=== PATIENT | male | born 1975 | race Caucasian/White ===

== ENCOUNTER 2022-02-10 20:59 | Outpatient (REF) | payer BC, SELFPAY ==
[2022-02-12 12:01] LABS: COVID-19 RT-PCR UVMMC Result Negative (Negative)
== END 2022-02-10 21:00 | disposition home or self-care (01) ==
LOC: NCHCN 20:59
PROVIDERS: Visit Provider Physician Assistant
DX: Z20.822 Contact with and (suspected) exposure to COVID-19 (principal)
CPT/HCPCS: U0003

== ENCOUNTER 2022-12-09 14:21 | Outpatient (CLI) | payer OTHER, SELFPAY ==
--- NOTE | 2022-12-09 14:00 | DI.RAD_ITS ---
Exam(s) XR SHOULDER RT COMPLETE 2+V EXAM: XR SHOULDER RT COMPLETE 2+V CLINICAL HISTORY: RIGHT SHOULDER PAIN. TECHNIQUE: 2D digital imaging was performed. COMPARISON: No exams were available for comparison FINDINGS: Two views: No evidence of fracture or dislocation or abnormal soft tissue calcifications. The subacromial space is not diminished. There is no glenohumeral joint space narrowing. Bone density normal. No osseou s lesions. Mild degenerative changes in the AC joint. Deformity in the mid aspect of the clavicle m ay be related to a healed fracture site versus is projection. IMPRESSION: As above. DATA REPOSITORY: RADIATION DOSE DELIVERED:
== END 2022-12-09 14:22 | disposition home or self-care (01) ==
PROVIDERS: PCP Nurse Practitioner; Referring Provider Nurse Practitioner; Visit Provider Student in an Organized Health Care Education/Training Program
DX: M25.511 Pain in right shoulder (principal); R93.89 Abnormal findings on diagnostic imaging of other specified body structures
CPT/HCPCS: 73030

== ENCOUNTER 2022-12-15 09:02 | Outpatient (CLI) | payer BC, SELFPAY ==
[2022-12-15 05:02] LABS: HCT 46.8 % (40.0-50.0); HGB 16.3 g/dL (13.5-17.5); MCHC 34.8 % (32.0-36.0); MCV 89 fL (80-95); MPV 9.4 fL (8.0-11.0); Platelet Count 174 10^3/uL (130-400); RBC 5.25 10^6/uL (4.36-5.78); RDW-SD 39.2 fL; WBC 5.74 10^3/uL (4.4-10.8)
[2022-12-15 06:07] LABS: ALT 265 U/L (16-63); AST 105 U/L (15-37); Albumin 4.2 g/dL (3.4-5.0); Alkaline Phosphatase 79 U/L (46-116); Anion Gap 8.6 mmol/L (3-11); BUN 14 mg/dL (7-18); Bilirubin, Total 0.7 mg/dL (0.2-1.0); CO2 27.4 mmol/L (21.0-32.0); Calcium 9.2 mg/dL (8.5-10.1); Calculated LDL 134 mg/dL (<100); Chloride 106 mmol/L (98-107); Cholesterol 203 mg/dL (<200); Glucose 109 mg/dL (74-106); HDL Cholesterol 45 mg/dL (40-60); Sodium 142 mmol/L (136-145); Triglyceride 122 mg/dL (<150)
[2022-12-15 16:37] LABS: Lab Add On Test DONE
[2022-12-15 17:04] LABS: Hemoglobin A1C 5.1 % (<5.7)
[2022-12-16 11:23] LABS: HIV-1/2 Ag & Ab Screen Negative (Negative)
[2022-12-16 15:43] LABS: Hepatitis C Ab w Rflx HCV PCR Negative (Negative)
== END 2022-12-15 09:03 | disposition home or self-care (01) ==
LOC: LBO 09:02
PROVIDERS: PCP Nurse Practitioner; Visit Provider Nurse Practitioner
DX: R73.09 Other abnormal glucose (principal); F41.1 Generalized anxiety disorder; G47.33 Obstructive sleep apnea (adult) (pediatric); Z13.220 Encounter for screening for lipoid disorders; Z11.59 Encounter for screening for other viral diseases; Z11.4 Encounter for screening for human immunodeficiency virus [HIV]; K21.9 Gastro-esophageal reflux disease without esophagitis
CPT/HCPCS: 80053; 80061; 85027; 86803; 87389; 83036

== ENCOUNTER 2023-01-15 01:17 | Outpatient (CLI) | payer OTHER, SELFPAY ==
--- NOTE | 2023-01-15 07:38 | DI.MRI_ITS ---
Exam(s) MR UPPER JOINT RT WO EXAM: MR UPPER JOINT RT WO CLINICAL HISTORY: R SHOULDER PAIN, INJURY,SLAP TEAR,S43.431A. TECHNIQUE: Multiplanar multisequence MRI was performed. COMPARISON: Plain films 09 December 2022 FINDINGS: BONES: No fracture . Some marrow edema seen adjacent to AC joint in distal clavicle and acromion. P osttraumatic versus inflammatory. No joint widening. JOINTS:The acromioclavicular joint shows mild spurring. The glenohumeral joint shows a small amount of fluid. TENDONS: Supraspinatus: Mild edema. No focal tear. Infraspinatus: Unremarkable. Subscapularis: Unremarkable. [place]: Unremarkable. Biceps and [place]: Thickening and intermediate signal of the proximal long head of the biceps tendon. No focal tear. Some fluid is noted in the biceps tendon sheath. MUSCLES: Unremarkable. GLENOID LABRUM: Unremarkable on this noncontrast examination. SOFT TISSUES: Unremarkable. OTHER: Subacromial and subdeltoid bursae show no fluid.. IMPRESSION: Tendinosis of the proximal biceps tendon. Question mild tendinosis supraspinatus. No labral tear vi sible. DATA REPOSITORY:
== END 2023-01-15 01:37 ==
PROVIDERS: PCP Nurse Practitioner; Visit Provider Student in an Organized Health Care Education/Training Program
DX: M25.511 Pain in right shoulder (principal); S43.431A Superior glenoid labrum lesion of right shoulder, initial encounter; M75.81 Other shoulder lesions, right shoulder
CPT/HCPCS: 73221

== ENCOUNTER 2023-01-15 13:37 | Outpatient (CLI) | payer BC, SELFPAY ==
[2023-01-15 15:59] LABS: ALT 103 U/L (16-63); AST 45 U/L (15-37); Albumin 4.3 g/dL (3.4-5.0); Alkaline Phosphatase 72 U/L (46-116); Bilirubin, Direct 0.2 mg/dL (0.0-0.2); Bilirubin, Total 0.8 mg/dL (0.2-1.0); Total Protein 7.5 g/dL (6.4-8.2)
== END 2023-01-15 13:38 | disposition home or self-care (01) ==
LOC: LBO 13:37
PROVIDERS: PCP Nurse Practitioner; Visit Provider Nurse Practitioner
DX: R79.89 Other specified abnormal findings of blood chemistry (principal)
CPT/HCPCS: 36415; 80076

== ENCOUNTER 2023-02-12 11:15 | Day surgery (SDC) | payer OTHER, SELFPAY ==
[2023-02-11] MEDS: Lactated Ringers 1,000 ML 30 ML IV (12:30)
[2023-02-12] VITALS (10 sets, daily range): BP systolic 98–138; BP diastolic 55–96; PULSE 63–76; RESP 12–19; TEMP 36.4–36.7; O2SAT 92–96; BMI 32.0
--- NOTE | 2023-02-12 12:16 | ANES.PREOP_ITS ---
General Info Date of Service Date Performed: 02/12/23 Height: 5 ft 9 in Weight: 98.43 kg Body Mass Index (BMI): 32.0 Surgical Procedure: Operation Date: 02/12/23 13:10 Proposed Procedure Side Surgeon p Shoulder Rotator Cuff Arthroscopic w/Extensive Debridement, Biceps Tenodesis, Subacromial Decompression Right Bj Mario MD Meds Allergies and Home Medications Allergies Allergy/AdvReac Type Severity Reaction Status Date / Time Penicillins Allergy Intermediate Skin Rash Verified 02/11/23 10:14 Sulfa (Sulfonamide Allergy Intermediate Hives Verified 02/11/23 10:14 Antibiotics) Home Medication Medication Instructions Recorded CPAP inhalation 07/25/22 fexofenadine 180 mg tablet 180 mg PO DAILY 07/28/22 (Allergy Relief (fexofenadine)) lorazepam 0.5 mg tablet 0.5 mg PO DAILY PRN anxiety #30 07/29/22 tabs omeprazole 20 mg capsule,delayed 20 mg PO DAILY #90 caps 07/29/22 release sertraline 100 mg tablet 100 mg PO DAILY #90 tabs 07/29/22 aspirin 81 mg tablet,delayed 81 mg PO DAILY prevent blood clot 02/12/23 release 7 days #7 tabs naproxen 250 mg tablet 250 - 500 mg PO BID PRN #40 tabs 02/12/23 oxycodone 5 mg tablet 5 - 10 mg PO Q4H PRN moderate to 02/12/23 severe pain #18 tabs Current Visit Medications: Current Medications Generic Name Dose Route Start Last Admin Trade Name Freq PRN Reason Stop Dose Admin Ringer's Solution 1,000 mls @ 30 mls/hr 02/12/23 06:00 IV 02/12/23 16:00 INFUSION HUSSEIN Cefazolin Sodium/Dextrose 2 gm in 50 mls @ 100 mls/hr 02/12/23 06:00 Ancef Duplex IVPB 02/12/23 23:59 PREOP HUSSEIN IV Miscellaneous Supplies 1 each 02/12/23 06:00 Iv Access IV 02/12/23 23:59 DIRECTED HUSSEIN Sodium Chloride 0 ml 02/12/23 06:00 Normal Saline Flush 10 Ml Syr IV 02/12/23 23:59 PRN PRN Sodium Chloride 0 ml 02/12/23 06:00 Normal Saline 10 Ml Vial IJ 02/12/23 23:59 DIRECTED PRN Sterile Water 0 ml 02/12/23 06:00 Water,Injection,Sterile 10 Ml Vial IJ 02/12/23 23:59 DIRECTED PRN PFSH Active Problems Active Problems: Problem Status Onset Code Chronic heartburn R12 Generalized anxiety disorder F41.1 Obstructive sleep apnea (adult) (pediatric) G47.33 Erectile dysfunction due to arterial insufficiency N52.01 Smoking greater than 20 pack years F17.210 Superior labrum bbsdzpgj-oa-trnljlptk (SLAP) tear of right shoulder S43.431A Traumatic tear of right rotator cuff S46.011A Tendonitis of long head of biceps brachii of right shoulder M75.21 Medical History Medical History (Updated 02/12/23 @ 12:32 by Bj Mario MD) Compressed spine fracture (Unknown) Pneumonia (1993) Superior labrum dunfvwcw-te-qrfbfcvae (SLAP) tear of right shoulder Tuberculosis (1992) Surgical History Surgical History History of appendectomy (1995) Hx of colonoscopy with polypectomy x6, last 2018 Tobacco Smoking/Tobacco Use Status: Former Tobacco Use Second hand exposure: No Alcohol Alcohol Intake: current Alcohol intake frequency: a few times a week Alcohol type: hard liquor Substance Use Substance use: Never Substance use type: does not use Vital Signs and Lab Results Lab Results Blood Type / Crossmatch: No Data to Display Complete Blood Count: No Data to Display Complete Metabolic Panel: Albumin 4.3 g/dL (3.4-5.0) 01/15/23 15:19 Liver Function Panel: Alanine Aminotransferase (ALT/SGPT) 103 U/L (16-63) H 01/15/23 15:19 Aspartate Amino Transf (AST/SGOT) 45 U/L (15-37) H 01/15/23 15: 19 Coagulation Panel: No Data to Display Cardiac Panel: No Data to Display Arterial Blood Gas: No Data to Display Venous Blood Gas: No Data to Display Pancreas Panel: No Data to Display Thyroid Panel: No Data to Display Infectious Disease: No Data to Display Blood Cultures: No Data to Display Toxicology Panel: No Data to Display Anesthesia Assessment and Plan Anesthesia History Personal History: No History of Anesthesia Complications Family History: No Family History of Anesthesia Complications Exercise Tolerance Exercise Tolerance: Metabolic Equivalents>4 Pertinent Negatives Pertinent Negatives: No Major Cardiovascular Symptoms or Complaints and No Major Pulmonary Symptoms or Complaints Cardiac & Pulmonary Exam Cardiac Exam: Normal S1/S2 Heart Sounds Pulmonary Exam: Clear Bilateral Breath Sounds Implantable Cardiac Device Does patient have a Pacemaker or an ICD?: No Airway Exam Known Difficult Airway: No Mallampati Class: 2 Mouth Opening: Normal (> 3cm) Thyromental Distance: Greater than 3 cm Neck Range of Motion: Full ROM Neck Circumference: Thick Teeth Condition: Normal Dentition ASA Classification ASA Score: ASA 2 Emergency Case?: No NPO Status NPO Status: NPO Clears >2 hours, Solids >8 hours Anesthesia Plan Resuscitation Status: Full Code Anesthesia Technique: General Anesthesia Airway Planned: Endotracheal Tube Pain Management: Surgeon and patient request nerve block Monitors Used: Standard Monitors
--- NOTE | 2023-02-12 12:31 | W.PM.OP ---
Date of service: 02/12/23 Time of Service: 13:00 Operative Note Operative Note DATE OF PROCEDURE: 02/12/23 PRE-OP DIAGNOSIS: Right: 1. Rotator cuff tear 2. SLAP tear with LHB tendinopathy 3. Bursitis POST-OP DIAGNOSIS: same PROCEDURE: Right: 1. Rotator cuff repair, CPT# 30708. This involved repair of the subscapularis using anchor and sutures to reattach the rotator cuff back to the footprint of the lesser tuberosity. 2. Arthroscopic biceps tenodesis, CPT# 38367. This involved arthroscopically suturing and reattaching the long head of the biceps tendon to the proximal humerus at the superior margin of the bicipital groove with a screw at the correct tension. 3. Extensive debridement, CPT# 09012. This involved using arthroscopic hand instruments, power instruments, and radiofrequency instruments to release the long head of the biceps tendon and debride areas of partial articular rotator cuff tearing, labral tearing, synovitis, and chondromalacia about the lesser tuberosity working within the glenohumeral joint anteriorly, superiorly and posteriorly. 4. Subacromial decompression with partial acromioplasty, CPT# 01515. This involved using arthroscopic power instruments and a radiofrequency wand to complete a bursectomy and smooth the undersurface of the acromion. The judicial administrative assistant was medically required in order to help assist in techniques above, which require positioning the arm, holding the arthroscope, and manipulating multiple instruments and sutures at the same time. This cannot be done without the help of an experienced judicial administrative assistant. SURGEON: Bj Mario BLACKING MACHINE OPERATOR: Kassandra Plummer ANESTHESIA TYPE: Local By Surgeon, General LMA/ETT and Primary Nerve Block Refer to Anesthesia Record ESTIMATED BLOOD LOSS: 10 PATHOLOGY: none sent COMPLICATIONS: None Patient was transported to: PACU Patient's condition: stable Implants: Arthrex: 4.75mm SwiveLocks x 1 Indications: The patient was diagnosed with the above conditions and appropriately indicated for surgical intervention. Please see complete medical record for details. Findings: Exam under anesthesia: Full range of motion, no instability Glenohumeral joint: Moderately sized upper lateral subscapularis tear with tissue void between the capsular and articular layers. Adjacent partial intra-articular biceps tendon tearing. Mild lesser tuberosity chondromalacia. Moderate articular sided supraspinatus thin tearing. Small anterior labral tear. Injected intra-articular biceps segment and biceps anchor superior labrum. Mild infraspinatus articular sided fraying and tearing. Subacromial space: Moderate bursitis. Moderate sharp undersurface acromion somewhat medially on the bursal rotator cuff. Intact bursal rotator cuff. Procedure Description: In the operating room, general anesthesia was induced. Bilateral shoulders were examined. The patient was positioned in the beachchair position. All bony prominences were well-padded. Preoperative antibiotics were administered. The shoulder was prepped and draped in the usual sterile fashion. The correct patient, procedure, and side of the procedure were all verified prior to incision. Starting through the posterior portal a standard complete diagnostic arthroscopy was performed of the glenohumeral joint including inspection of the long head of the biceps, anterior and superior labrum, subscapularis tendon, supraspinatus and infraspinatus tendons, and axillary recess. The glenoid and humeral head cartilage as well as the posterior labrum were inspected from an anterior viewing portal. Significant findings and interventions noted above. A rigid cannula was inserted anteriorly. The articular supraspinatus and infraspinatus tearing was carefully debrided removing the free flaps but preserving as much as a superior capsule and intact tendon as possible. The subscapularis tear was probed with a somewhat unusual avoid between the layers and the defect at the superior aspect of the lesser tuberosity. The biceps tendon was then secured using the loop and tack method with a suture tape FiberLink cinched around and through the tendon. The tendon was cut flush and amputated from the superior labrum. It was withdrawn with direct arm pressure and rested nicely at an ideal location at the superior aspect of the bicipital groove. The subscapularis tendon was then lightly debrided and the lesser tuberosity prepared with hand and power instruments to optimize bone tendon healing. A FiberTape was then placed using the BirdBeak around the tear void. In the punch was used to localize suture anchor placement. The biceps tenodesis repair suture was shuttled through the suture anchor eyelet from lateral to medial in the subscapularis repair suture shuttled the other way from medial to lateral. The 4.75 mm knotless SwiveLock anchor was then appropriately deployed with excellent reduction and tissue fixation of the subscapularis as well the biceps tenodesis. The subscapularis repair was probed and examined through external rotation found to be stable. The biceps tendon stump was then secured additionally given young age and high activity level with the available extra knotless mechanism stitch shuttled around the tendon and then secured and tension back through the anchor mechanism. The biceps repair was was also stable through testing and direct arm pressure. The articular rotator cuff repair was again inspected and there was no high-grade thickness tearing or more than fairly minimal involvement of the greater tuberosity rotator cuff footprint. Starting through the posterior portal, the arthroscope was directed into the subacromial space. A lateral 50 yard line lateral portal was created. A combination of power instruments and a radiofrequency ablator were used to debride bursitis anteriorly, posteriorly, and laterally as well as expose and smooth bone spurring on the undersurface of the acromion. The coracoacromial ligament was partially released. The bursectomy was completed viewing laterally and working from posteriorly and the rotator cuff was thoroughly inspected with findings noted above. The shoulder was drained of arthroscopic fluid. All portal sites were copiously irrigated. These incisions were closed using 3-0 Monocryl in a buried fashion and then covered with Mastisol, Steri-Strips, Xeroform, dry gauze, and ABDs. The dressings were covered and secured with Medipore tape. The operative extremity was placed into a sling for immobilization. The patient awoke from anesthesia without complication and was transferred to the recovery room in a stable condition.
--- NOTE | 2023-02-12 12:31 | W.PM.DSUDISC ---
Date of service: 02/12/23 Time of Service: 15:00 Discharge Plan Disposition Patient Disposition: Home Discharge Details Attending Provider: Bj Mario Primary Care Provider: Eliza Cruz Home Meds and New Rx's Prescriptions: New naproxen 250 mg tablet 250 - 500 mg PO BID PRNQty: 40 0RF Rx Instructions: take with a meal aspirin 81 mg tablet,delayed release (DR/EC) 81 mg PO DAILY 7 Days Qty: 7 0RF oxycodone 5 mg tablet 5 - 10 mg PO Q4H MDD 30 mg PRN (Reason: moderate to severe pain) Qty: 18 0RF Continued CPAP inhalation fexofenadine [Allergy Relief (fexofenadine)] 180 mg tablet 180 mg PO DAILY lorazepam 0.5 mg tablet 0.5 mg PO DAILY PRN (Reason: anxiety) Qty: 30 0RF omeprazole 20 mg capsule,delayed release(DR/EC) 20 mg PO DAILY Qty: 90 3RF sertraline 100 mg tablet 100 mg PO DAILY Qty: 90 3RF Discharge Instructions Additional Instructions: Surgery: Right shoulder arthroscopy with rotator cuff repair (subscapularis), biceps tenodesis, extensive debridement, and subacromial decompression. Activity: For 6 weeks, you should keep your arm at your side in a neutral position at all times except for physical therapy. Do not try to lift or raise your arm using your own muscles. You should use the sling whenever you are out of the house. You may have to adjust the abduction pillow or remove it for comfort. At home it is best to remove the sling and rest the arm on a pillow at your side or support the operative side with your other hand. You may allow the arm to dangle at your side. A physical therapy prescription will be sent electronically to begin in about 3 weeks. ACCELERATED protocol. Prescriptions: Aspirin 81 mg take 1 daily to prevent a blood clot for 7 days Naproxen 250 mg take 1-2 every 12 hours with a meal as needed for moderate pain Oxycodone 5 mg take 1-2 every 4-6 hours as needed for severe pain You may use bmym-nqw-nmralpg Tylenol (acetaminophen) as needed for mild pain. These pain medications may be taken all at once or in different combinations as needed. Also, recommend Colace (docusate) as a stool softener as surgery and pain medicine cause constipation. You may try wyvj-xnc-cijbujs diphenhydramine (Benadryl) 25-50 mg nightly as a sleep aid Dressings: Remove shoulder bandage after 3 days. Leave the sticky Steri-Strips in place until they fall off or remove them after you shower. Cover the incisions with Band-Aids or leave them open to air. You may shower after 5 days. Follow-up: 10-[address] Mario You may take off the leg compression stockings this evening at home. You may also leave them on a few days longer if you have a history of leg swelling or edema. Let us know right away if you develop any redness, drainage, fevers, chest pain, or trouble breathing. Do not drink alcohol or drive for at least 24 hours after anesthesia. Please call the office during business hours with any questions or concerns. Discharge Orders Discharge Orders: Discharge Order (Routine); Ordered 02/12/23 Ordered By: Bj Mario DS: Diagnosis Discharge Diagnosis (1) Traumatic tear of right rotator cuff: Status: Acute
[2023-02-12] MEDS: ceFAZolin 2 GM/50 ML BAG IVPB (13:45)
--- NOTE | 2023-02-12 14:24 | W.ANESNERVE ---
Nerve Block Single Injection Procedure Date and Time Date Performed: 02/12/23 Procedure Start: 12:51 Location Where Procedure Performed Procedure Location: Day Surgery Unit Reason Performed: Postoperative Analgesia Requesting Provider: Bj Mario Timeout Performed Timeout Performed: Yes Monitoring Used ECG, Blood Pressure, SpO2 and See EMR for corresponding vital signs Sterility Sterility: Hand Hygiene, Surgical Cap, Surgical Mask, Sterile Gloves and Chlorhexidine Sedation Given During Procedure Sedation Given (Indicate Dose Given): Versed IV Dose:: 2mg Patient Mental Status Patient Mental Status: Sedate with meaningful communication Nerve Block 1st Nerve Block: Laterality: Right Block Type: Interscalene Ultrasound Image Saved?: Yes Needle / Catheter Used: 100mm SonoPlex II Local Anesthetic Bolus (Indicate Dose Given): Lidocaine used for local infiltration of skin, Injected in 3-5ml increments after negative blood aspiration, Bupivacaine 0.5% Dose:: 15mL and Exparel Dose:: 10mL Additives (Indicate Dose Given): None Ultrasound: Sterile probe cover and gel used Nerve Stimulator: Supplement to Ultrasound use and No twitch or parasthesia noted < 0.5 mA Paresthesia: Right (Patient has difficult time discerning between pressure and electrical sensation, no response on nerve stimulator, but needle retracted at patient's response to discomfort) Paresthesia Duration: Transient Procedure Tolerated: No Complications Procedure Outcome: Successful Procedure Comment: Ollie Sandhu CRNA assist with block. Slightly distal to interscalene groove secondary to patient positioning. Patient tolerated procedure well, present during procedure at patient request. Performed By: Luci Meraz
[2023-02-12] MEDS: Bupivacaine 0.25% Pres-Free W/EPI 30 ML VIAL (14:43)
[2023-02-12] MEDS: EPINEPHrine 30 MG/30 ML VIAL (14:43)
--- NOTE | 2023-02-12 16:00 | DI.RAD_ITS ---
Exam(s) XR PORTABLE CHEST AP EXAM: XR PORTABLE CHEST AP CLINICAL HISTORY: Tracheal width exam. TECHNIQUE: 2D digital imaging was performed. COMPARISON: No exams were available for comparison FINDINGS: Exam is extremely limited by poor pulmonary inflation and respiratory motion. LUNGS: Expiratory. Question of bilateral pleural effusions and basilar infiltrates versus atelectasi s. HEART: Mostly obscured. AORTA: Normal diameter. BONES: Unremarkable for age. Soft tissues: Unremarkable. IMPRESSION: Extremely limited exam. Question of bilateral pleural effusions and or infiltrates. DATA REPOSITORY: RADIATION DOSE DELIVERED:
--- NOTE | 2023-02-12 16:35 | W.ANESPOSTOP ---
Postoperative Evaluation Date, Time and Location Date Performed: 02/12/23 Time Performed: 16:35 Patient Location: PACU Vital Signs Most Recent Imported Vital Signs: Most Recent Vital Signs Temp Pulse Resp BP Pulse Ox 36.7 C 66 15 98/71 L 95 02/12/23 16:18 02/12/23 16:18 02/12/23 16:18 02/12/23 16:18 02/12/23 16:18 Pain Score Most Recent Pain Score: Most Recent Pain Score Pain Level 5 02/12/23 16:18 Assessment Mental Status: Awake (Alert & Oriented to Patient Baseline) Airway and Respiratory Function: Patent airway with normal (patient baseline) respiratory exam Cardiovascular Function: Hemodynamically Stable Hydration Status: Adequately Hydrated Nausea & Vomiting: No Nausea or Vomiting Pain: Pain is tolerable per patient (Will receive PO oxycodone in [facility]. He is motivated to go home. ) Peripheral Nerve Block: Regional nerve block not resolved at time of post operative discharge (Moving fingers, denies finger/hand numbness/tingling. He point to one spot in his anterior superior shoulder that is painful, otherwise no other discomfort.)
[2023-02-12] MEDS: oxyCODONE 5 MG TAB PO ×2 (16:42→17:28)
== END 2023-02-12 17:48 | disposition home or self-care (01) ==
PROVIDERS: PCP Nurse Practitioner; Visit Provider Student in an Organized Health Care Education/Training Program
PROC: (CPT 29827; principal; 2023-02-12 13:00)
DX: S46.011A Strain of muscle(s) and tendon(s) of the rotator cuff of right shoulder, initial encounter (principal); S43.431A Superior glenoid labrum lesion of right shoulder, initial encounter; M75.21 Bicipital tendinitis, right shoulder; M75.51 Bursitis of right shoulder; X58.XXXA Exposure to other specified factors, initial encounter; M94.211 Chondromalacia, right shoulder; M65.811 Other synovitis and tenosynovitis, right shoulder
CPT/HCPCS: 29827; 29828; 29826; 29823; 76942; 71045; J0690; J1100; J1885; J2250; J2370; J2405; J2704

== ENCOUNTER 2024-01-22 13:42 | Outpatient (CLI) | payer BC, SELFPAY ==
[2024-01-22 11:34] LABS: Absolute Basophil Count 0.02 10^3/uL (0.0-0.2); Absolute Eosinophil Count 0.04 10^3/uL (0.0-0.7); Absolute Lymphocyte Count 1.97 10^3/uL (1.2-3.4); Absolute Monocyte Count 0.52 10^3/uL (0.1-0.8); Basophils % 0.3; Eosinophils % 0.7; HCT 49.1 % (40.0-50.0); HGB 17.5 g/dL (13.5-17.5); Lymphocytes % 33.7; MCH 31.5 pg (27.0-33.0); MCHC 35.6 % (32.0-36.0); MCV 89 fL (80-95); MPV 9.2 fL (8.0-11.0); Monocytes % 8.9; Neutrophils % 56.4; Platelet Count 205 10^3/uL (130-400); RBC 5.55 10^6/uL (4.36-5.78); RDW 13.2 % (11.8-14.1); RDW-SD 42.7 fL; WBC 5.85 10^3/uL (4.4-10.8)
[2024-01-22 12:14] LABS: ALT 153 U/L (16-63); AST 84 U/L (15-37); Albumin 4.3 g/dL (3.4-5.0); Alkaline Phosphatase 72 U/L (46-116); Anion Gap 5.5 mmol/L (3-11); BUN 10 mg/dL (7-18); Bilirubin, Direct 0.3 mg/dL (0.0-0.2); Bilirubin, Total 1.2 mg/dL (0.2-1.0); CO2 31.5 mmol/L (21.0-32.0); CREATININE 1.1 mg/dL (0.70-1.30); Chloride 105 mmol/L (98-107); Estimated GFR 83.32 (mL/min/1.73m2); Glucose 112 mg/dL (74-106); Lipase 30 U/L (16-77); Potassium 4.3 mmol/L (3.5-5.1); Sodium 142 mmol/L (136-145); Total Protein 7.8 g/dL (6.4-8.2)
[2024-01-22 12:30] LABS: Calcium 9.7 mg/dL (8.5-10.1); Calculated LDL 127 mg/dL (<100); Cholesterol 198 mg/dL (<200); HDL Cholesterol 50 mg/dL (40-60); Triglyceride 109 mg/dL (<150)
[2024-01-22 20:17] LABS: Lab Add On Test DONE
[2024-01-22 20:41] LABS: Hemoglobin A1C 5.2 % (<5.7)
== END 2024-01-22 13:43 | disposition home or self-care (01) ==
LOC: LBO 13:42
PROVIDERS: PCP Nurse Practitioner; Visit Provider Student in an Organized Health Care Education/Training Program
DX: R19.8 Other specified symptoms and signs involving the digestive system and abdomen (principal); K75.9 Inflammatory liver disease, unspecified; Z13.220 Encounter for screening for lipoid disorders; N17.9 Acute kidney failure, unspecified
CPT/HCPCS: 36415; 80048; 80061; 80076; 83690; 83036; 85025